=== PATIENT | female | born 1965 | race Caucasian/White ===

== ENCOUNTER 2020-01-21 08:54 | Outpatient (REF) | payer OTHER, SELFPAY ==
[2020-01-21 23:54] LABS: ALT 44 U/L (14-59); AST 22 U/L (15-37); Albumin 4.4 g/dL (3.4-5.0); Alkaline Phosphatase 87 U/L (46-116); Anion Gap 7.8 mmol/L (3-11); BUN 13 mg/dL (7-18); Bilirubin, Total 0.5 mg/dL (0.2-1.0); CO2 30.2 mmol/L (21.0-32.0); CREATININE 0.93 mg/dL (0.55-1.02); Calcium 9.5 mg/dL (8.5-10.1); Calculated LDL 157 mg/dL (<100); Chloride 102 mmol/L (98-107); Cholesterol 250 mg/dL (<200); Glucose 106 mg/dL (74-106); HDL Cholesterol 67 mg/dL (40-60); Potassium 4.1 mmol/L (3.5-5.1); Sodium 140 mmol/L (136-145); TSH (W/Ref FT4) 4.13 uIU/mL (0.36-3.74); Triglyceride 130 mg/dL (<150); Vitamin B12 361 pg/mL (193-986)
[2020-01-22 00:17] LABS: FREE T4 0.81 ng/dL (0.76-1.46)
== END 2020-01-21 09:14 ==
LOC: NCHCN 08:54
PROVIDERS: PCP Nurse Practitioner Family; Visit Provider Family Medicine
DX: R73.09 Other abnormal glucose (principal); E66.01 Morbid (severe) obesity due to excess calories; Z13.220 Encounter for screening for lipoid disorders; R20.2 Paresthesia of skin
CPT/HCPCS: 80053; 80061; 82607; 83036; 84439; 84443

== ENCOUNTER 2020-07-10 14:16 | Outpatient (REF) | payer OTHER, SELFPAY ==
[2020-07-10 21:50] LABS: TSH (W/Ref FT4) 3.32 uIU/mL (0.36-3.74)
== END 2020-07-10 14:36 ==
LOC: NCHCN 14:16
PROVIDERS: PCP Internal Medicine; Visit Provider Internal Medicine
DX: R94.6 Abnormal results of thyroid function studies (principal)
CPT/HCPCS: 84443

== ENCOUNTER 2020-09-16 22:02 | Outpatient (REF) | payer OTHER, SELFPAY ==
[2020-09-18 14:37] LABS: COVID-19 RT-PCR UVMMC Result Negative (Negative)
== END 2020-09-16 22:03 | disposition home or self-care (01) ==
LOC: NCHCN 22:02
PROVIDERS: PCP Internal Medicine; Visit Provider Nurse Practitioner Family
DX: Z20.828 Contact with and (suspected) exposure to other viral communicable diseases (principal)
CPT/HCPCS: U0003

== ENCOUNTER 2021-01-07 15:08 | Outpatient (REF) | payer OTHER, SELFPAY ==
[2021-01-07 13:58] LABS: Hemoglobin A1C 5.8 % (<5.7)
[2021-01-07 14:07] LABS: ALT 29 U/L (14-59); AST 15 U/L (15-37); Albumin 3.9 g/dL (3.4-5.0); Alkaline Phosphatase 83 U/L (46-116); Anion Gap 8.4 mmol/L (3-11); BUN 14 mg/dL (7-18); Bilirubin, Total 0.6 mg/dL (0.2-1.0); CO2 29.6 mmol/L (21.0-32.0); CREATININE 0.9 mg/dL (0.55-1.02); Calcium 9.3 mg/dL (8.5-10.1); Calculated LDL 110 mg/dL (<100); Chloride 104 mmol/L (98-107); Cholesterol 198 mg/dL (<200); Glucose 104 mg/dL (74-106); HDL Cholesterol 74 mg/dL (40-60); Potassium 4.3 mmol/L (3.5-5.1); Sodium 142 mmol/L (136-145); TSH (W/Ref FT4) 2.85 uIU/mL (0.36-3.74); Total Protein 7.5 g/dL (6.4-8.2); Triglyceride 73 mg/dL (<150)
== END 2021-01-07 15:09 | disposition home or self-care (01) ==
LOC: NCHCN 15:08
PROVIDERS: PCP Internal Medicine; Visit Provider Internal Medicine
DX: R73.03 Prediabetes (principal); E03.9 Hypothyroidism, unspecified; E78.5 Hyperlipidemia, unspecified
CPT/HCPCS: 80053; 80061; 83036; 84443

== ENCOUNTER 2022-01-11 09:24 | Outpatient (REF) | payer OTHER, SELFPAY ==
[2022-01-11 15:04] LABS: Anion Gap 8.2 mmol/L (3-11); BUN 15 mg/dL (7-18); CO2 29.8 mmol/L (21.0-32.0); CREATININE 0.8 mg/dL (0.55-1.02); Calcium 8.9 mg/dL (8.5-10.1); Calculated LDL 145 mg/dL (<100); Chloride 103 mmol/L (98-107); Cholesterol 231 mg/dL (<200); Glucose 104 mg/dL (74-106); HDL Cholesterol 71 mg/dL (40-60); Potassium 4.5 mmol/L (3.5-5.1); Sodium 141 mmol/L (136-145); Triglyceride 77 mg/dL (<150)
== END 2022-01-11 09:25 | disposition home or self-care (01) ==
LOC: NCHCN 09:24
PROVIDERS: PCP Internal Medicine; Visit Provider Internal Medicine
DX: R73.03 Prediabetes (principal); E78.5 Hyperlipidemia, unspecified
CPT/HCPCS: 80048; 80061

== ENCOUNTER 2023-06-06 16:24 | Outpatient (REF) | payer OTHER, SELFPAY ==
[2023-06-06 15:51] LABS: HCT 41.6 % (36.0-46.0); HGB 13.7 g/dL (11.2-15.7); MCH 30.3 pg (27.0-33.0); MCHC 32.9 % (32.0-36.0); MCV 92 fL (80-95); MPV 10.8 fL (8.0-11.0); Platelet Count 325 10^3/uL (130-400); RBC 4.52 10^6/uL (3.93-5.22); WBC 7.94 10^3/uL (4.4-10.8)
[2023-06-06 16:25] LABS: ALT 38 U/L (14-59); AST 23 U/L (15-37); Albumin 4.1 g/dL (3.4-5.0); Alkaline Phosphatase 81 U/L (46-116); Anion Gap 8.3 mmol/L (3-11); BUN 15 mg/dL (7-18); Bilirubin, Total 0.6 mg/dL (0.2-1.0); CO2 29.7 mmol/L (21.0-32.0); CREATININE 0.9 mg/dL (0.55-1.02); Calcium 9.5 mg/dL (8.5-10.1); Chloride 101 mmol/L (98-107); Estimated GFR 73.64 (mL/min/1.73m2); Glucose 122 mg/dL (74-106); Lipase 33 U/L (16-77); Magnesium 2.2 mg/dL (1.8-2.4); Potassium 4.3 mmol/L (3.5-5.1); Sodium 139 mmol/L (136-145); TSH (W/Ref FT4) 4.25 uIU/mL (0.36-3.74)
[2023-06-06 16:53] LABS: FREE T4 0.79 ng/dL (0.76-1.46)
== END 2023-06-06 16:25 | disposition home or self-care (01) ==
LOC: NCHCN 16:24
PROVIDERS: PCP Internal Medicine; Visit Provider Registered Nurse
DX: R07.89 Other chest pain (principal)
CPT/HCPCS: 80053; 83690; 85027; 83735; 84439; 84443